=== PATIENT | female | born 1965 | race American Indian/Alaskan Native ===

== ENCOUNTER 2017-09-08 10:42 | Emergency (ER) | payer SELFPAY ==
[2017-09-08 11:15] VITALS: BP 167/91
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
== END 2017-09-08 12:10 | disposition home or self-care (01) ==
LOC: ED 10:42
DX: M54.9 Dorsalgia, unspecified (principal); G89.29 Other chronic pain; E11.9 Type 2 diabetes mellitus without complications; M19.90 Unspecified osteoarthritis, unspecified site; F20.9 Schizophrenia, unspecified; J45.909 Unspecified asthma, uncomplicated; Z98.51 Tubal ligation status; Z88.0 Allergy status to penicillin
CPT/HCPCS: 99282

== ENCOUNTER 2018-09-26 09:04 | Emergency (ER) | payer MEDICARE ==
[2018-09-26] MEDS ORDERED: NACL 0.9% 1000 ML 1,000 ML IV ONE (09:41)
[2018-09-26] MEDS ORDERED: ZOFRAN IV ONE (09:41)
[2018-09-26] MEDS ORDERED: MORPHINE IV ONE (09:59)
[2018-09-26 10:01] LABS: Bacteria,Urine 1+ /HPF (Negative); Bilirubin,Urine NEG (Negative); Blood,Urine SM (Negative); Color,Urine Yellow (Yellow); Mucus,Urine FEW /HPF; Protein,Urine <15 mg/dL mg/dL (Negative); Urobilinogen,Urine < 2.0 mg/dL (<2.0)
[2018-09-26] MEDS ORDERED: MORPHINE ONE (10:02)
[2018-09-26] MEDS ORDERED: ZITHROMAX PO ONE (10:09)
[2018-09-26] MEDS ORDERED: CLEOCIN 900 MG/50 mL 900 MG/50 ML BAG IV ONE (10:09)
--- NOTE | 2018-09-26 10:15 | Emergency Department Report ---
ED Female HPI - General Chief complaint: Urogenital-Female Stated complaint: PAIN ALL OVER Time Seen by Provider: 09/26/18 09:28 Source: patient Mode of arrival: Ambulatory Limitations: No Limitations - History of Present Illness Initial comments: Pt is a 53 yo female who presents to the ED with c/o vaginal irritation that began 3 weeks ago. She has associated burning, itching, vaginal discharge, and dysuria. The patient states she also has back pain and suprapubic pain. She denies any N/V or fever. The patient was evaluated in the ED on [facility] and completed a course of bactrim, fluconazole, and nystatin powder but is still experiencing symptoms. - Related Data Home Medications Medication Instructions Recorded Confirmed Last Taken Gabapentin [Neurontin] 300 mg PO TID 08/05/13 02/06/16 09/26/14 FLUoxetine [PROzac] 20 mg PO QDAY 01/04/14 02/06/16 09/26/14 Levothyroxine [Synthroid] 125 mcg PO QAM 01/04/14 02/06/16 09/26/14 Phenytoin [Dilantin] 100 mg PO HS 01/04/14 02/06/16 09/26/14 Rosuvastatin (Nf) [Crestor] 20 mg PO HS 01/04/14 02/06/16 09/25/14 metFORMIN [Glucophage] 500 mg PO BID 01/04/14 02/06/16 09/26/14 Previous Rx's Medication Instructions Recorded Last Taken Type Butalb/Acetamin/Caff 50-325-40 2 tab PO Q4H PRN #30 tablet 09/29/14 Unknown Rx [Fioricet] Symbicort 160-4.5 1 puff INHALATION DAILY #1 09/29/14 Unknown Rx amLODIPine [Norvasc] 5 mg PO DAILY #30 tablet 09/29/14 Unknown Rx hydroCHLOROthiazide [HCTZ] 25 mg PO DAILY #30 tablet 09/29/14 Unknown Rx Ciprofloxacin HCl [Ciprofloxacin 250 mg PO BID 3 Days #6 tablet 09/26/18 Unknown Rx TAB] Fluconazole [Diflucan] 200 mg PO ONCE 1 Days #1 tablet 09/26/18 Unknown Rx Phenazopyridine [Pyridium] 100 mg PO TID 3 Days #9 tab 09/26/18 Unknown Rx Allergies Allergy/AdvReac Type Severity Reaction Status Date / Time Penicillins AdvReac Unknown Verified 08/05/13 06:26 ED Review of Systems ROS: Stated complaint: PAIN ALL OVER Other details as noted in HPI Comment: All other systems reviewed and negative ED Past Medical Hx - Past Medical History Previous Medical History?: Yes Hx Hypertension: Yes Hx Diabetes: Yes Hx Arthritis: Yes Hx Seizures: Yes Hx Psychiatric Treatment: Yes (schizophrenia, Mood disorder, bipolar.) Hx Asthma: Yes Additional medical history: PVD - Surgical History Past Surgical History?: Yes Hx Cholecystectomy: Yes Additional Surgical History: ,TUBAL LIGATION - Social History Smoking Status: Never Smoker Substance Use Type: None - Medications Home Medications: Home Medications Medication Instructions Recorded Confirmed Last Taken Type Gabapentin [Neurontin] 300 mg PO TID 08/05/13 02/06/16 09/26/14 History FLUoxetine [PROzac] 20 mg PO QDAY 01/04/14 02/06/16 09/26/14 History Levothyroxine [Synthroid] 125 mcg PO QAM 01/04/14 02/06/16 09/26/14 History Phenytoin [Dilantin] 100 mg PO HS 01/04/14 02/06/16 09/26/14 History Rosuvastatin (Nf) [Crestor] 20 mg PO HS 01/04/14 02/06/16 09/25/14 History metFORMIN [Glucophage] 500 mg PO BID 01/04/14 02/06/16 09/26/14 History Butalb/Acetamin/Caff 50-325-40 2 tab PO Q4H PRN #30 tablet 09/29/14 02/06/16 Unknown Rx [Fioricet] Symbicort 160-4.5 1 puff INHALATION DAILY #1 09/29/14 02/06/16 Unknown Rx amLODIPine [Norvasc] 5 mg PO DAILY #30 tablet 09/29/14 02/06/16 Unknown Rx hydroCHLOROthiazide [HCTZ] 25 mg PO DAILY #30 tablet 09/29/14 02/06/16 Unknown Rx Ciprofloxacin HCl [Ciprofloxacin 250 mg PO BID 3 Days #6 tablet 09/26/18 Unknown Rx TAB] Fluconazole [Diflucan] 200 mg PO ONCE 1 Days #1 tablet 09/26/18 Unknown Rx Phenazopyridine [Pyridium] 100 mg PO TID 3 Days #9 tab 09/26/18 Unknown Rx ED Physical Exam - General Limitations: No Limitations General appearance: alert, other (appears in moderate amount of discomfort ) - Head Head exam: Present: atraumatic, normocephalic - Eye Eye exam: Present: normal appearance - ENT ENT exam: Present: mucous membranes moist - Respiratory Respiratory exam: Present: normal lung sounds bilaterally. Absent: respiratory distress, wheezes, rales, rhonchi, stridor, chest wall tenderness, accessory muscle use, decreased breath sounds, prolonged expiratory - Cardiovascular Cardiovascular Exam: Present: regular rate, normal rhythm, normal heart sounds. Absent: systolic murmur, diastolic murmur, rubs, gallop - GI/Abdominal GI/Abdominal exam: Present: soft, tenderness (mild TTP in the bilateral upper quadrants, no lower quadrant tenderness, no suprapubic tenderness), normal bowel sounds. Absent: distended, guarding, rebound, rigid, mass - External exam: Present: erythema, other (foam fabricator: EMILY Cárdenas present during pelvic examination ). Absent: swelling, lesions, lacerations, ecchymosis, bleeding Speculum exam: Present: erythema, vaginal discharge (moderate amount of white/yellow discharge), cervical discharge, vaginal bleeding (small amount of punctate bleeding ) Bi-manual exam: Present: cervical motion tendernes (moderate bilaterally on examination ). Absent: adnexal tenderness, adnexal mass, uterine enlargement, uterine tenderness - Back Exam Back exam: Present: CVA tenderness (R), CVA tenderness (L) - Neurological Exam Neurological exam: Present: alert, oriented X3 - Psychiatric Psychiatric exam: Present: normal affect, normal mood - Skin Skin exam: Present: warm, dry, intact ED Course Vital Signs 09/26/18 09/26/18 09:11 12:34 Temperature 97.4 F L 98.9 F Pulse Rate 100 H 72 Respiratory 16 16 Rate Blood Pressure 173/102 Blood Pressure 136/84 [Left] O2 Sat by Pulse 99 99 Oximetry ED Medical Decision Making - Lab Data Result diagrams: 09/26/18 10:05 09/26/18 10:05 Lab Results 09/26/18 09/26/18 09/26/18 Range/Units 09:51 10:05 10:05 WBC 6.6 (4.5-11.0) K/mm3 RBC 4.24 (3.65-5.03) M/mm3 Hgb 13.2 (10.1-14.3) gm/dl Hct 39.0 (30.3-42.9) % MCV 92 (79-97) fl MCH 31 (28-32) pg MCHC 34 (30-34) % RDW 14.6 (13.2-15.2) % Plt Count 289 (140-440) K/mm3 Lymph % (Auto) 21.9 (13.4-35.0) % Green % (Auto) 6.1 (0.0-7.3) % Eos % (Auto) 1.9 (0.0-4.3) % Baso % (Auto) 0.5 (0.0-1.8) % Lymph # 1.4 (1.2-5.4) K/mm3 Green # 0.4 (0.0-0.8) K/mm3 Eos # 0.1 (0.0-0.4) K/mm3 Baso # 0.0 (0.0-0.1) K/mm3 Seg Neutrophils % 69.6 (40.0-70.0) % Seg Neutrophils # 4.6 (1.8-7.7) K/mm3 Sodium 140 (137-145) mmol/L Potassium 4.6 (3.6-5.0) mmol/L Chloride 101.2 (98-107) mmol/L Carbon Dioxide 25 (22-30) mmol/L Anion Gap 18 mmol/L BUN 11 (7-17) mg/dL Creatinine 0.7 (0.7-1.2) mg/dL Estimated GFR > 60 ml/min BUN/Creatinine Ratio 16 % Glucose 317 H (65-100) mg/dL Calcium 9.4 (8.4-10.2) mg/dL Total Bilirubin 0.30 (0.1-1.2) mg/dL AST 26 (5-40) units/L ALT 30 (7-56) units/L Alkaline Phosphatase 125 (35-129) units/L Total Protein 6.7 (6.3-8.2) g/dL Albumin 3.7 L (3.9-5) g/dL Albumin/Globulin Ratio 1.2 % Lipase 57 (13-60) units/L Urine Color Yellow (Yellow) Urine Turbidity Slightly-cloudy (Clear) Urine pH 5.0 (5.0-7.0) Ur Specific [place] 1.043 H (1.003-1.030) Urine Protein <15 mg/dl (Negative) mg/dL Urine Glucose (UA) >=500 (Negative) mg/dL Urine Ketones 80 (Negative) mg/dL Urine Blood Sm (Negative) Urine Nitrite Neg (Negative) Urine Bilirubin Neg (Negative) Urine Urobilinogen < 2.0 (<2.0) mg/dL Ur Leukocyte Esterase Lg (Negative) Urine WBC (Auto) 27.0 H (0.0-6.0) /HPF Urine RBC (Auto) 30.0 (0.0-6.0) /HPF U Epithel Cells (Auto) 7.0 (0-13.0) /HPF Urine Bacteria (Auto) 1+ (Negative) /HPF Urine Mucus Few /HPF repeat accucheck is 272 - Radiology Data Radiology results: report reviewed interpreted by me: CT ABDOMEN PELVIS WITH CONTRAST: HISTORY: Bilateral flank pain, history of UTI. COMPARISON: none. TECHNIQUE: Helical CT in 1.25mm intervals following IV contrast. Sagittal and coronal reconstructions. FINDINGS: Lung bases: Normal. Liver: Normal. Biliary system: Cholecystectomy. Pancreas: Normal. Spleen: Normal. Kidneys/ureters/bladder: Normal. Adrenal glands: Normal. Aorta: Normal. Intestines: Normal. Appendix: Normal. Pelvic viscera: Normal. Ascites: None. Adenopathy: None. Musculoskeletal: Normal. IMPRESSION: Unremarkable CT scan of the abdomen and pelvis with contrast. Transcribed By: TTR Dictated By: HEATHER CALDERON JR, MD Electronically Authenticated By: HEATHER CALDERON JR, MD Signed Date/Time: 09/26/18 1132 - Medical Decision Making Pt is a 53 yo female who presents to the ED with c/o vaginal irritation that began 3 weeks ago. She has associated burning, itching, vaginal discharge, and dysuria. The patient states she also has back pain and suprapubic pain. She denies any N/V or fever. The patient was evaluated in the ED on [facility] and completed a course of bactrim, fluconazole, and nystatin powder but is still experiencing symptoms. On examination pt has bilateral flank pain. On pelvic examination pt has vaginal and cervical discharge and CMT present on examination, small area of punctuate bleeding. Pt given clindamycin due to ceftriaxone allergy and also given azithromycin. UA shows WBCs and leukocyte esterase. No leukocytosis. Blood glucose is elevated, repeat is <300. CT abd/pelvis with no acute process. wet prep with no yeast, trichomonas, or BV. G/C swab sent. Pt treated for G/C with clindamycin (due to PCN allergy), azithromycin. Pt given prescription for cipro due to failure of bactrim. Pt also given another fluconazole tablet and advised to continue using her already prescribed nystatin powder. Advised pt to follow up with a METAL WORKER in the next 2-3 days for further evaluation and management. Discussed with pt to follow up with her PCP in the next 2-3 days due to her elevation in her blood glucose and elevation in her initial blood pressure reading. Repeat blood pressure significantly improved without intervention. Discussed with pt to return to the ED for any new or worsening symptoms. Advised to continue to drink plenty of water. - Differential Diagnosis UTI, Yeast, BV, Trichomonas, STD Critical care attestation.: If time is entered above; I have spent that time in minutes in the direct care of this critically ill patient, excluding procedure time. ED Disposition Clinical Impression: Vaginal pain, Flank pain, Hyperglycemia, Elevated blood pressure reading UTI (urinary tract infection) Qualifiers: Urinary tract infection type: acute cystitis Hematuria presence: with hematuria Qualified Code(s): N30.01 - Acute cystitis with hematuria HTN (hypertension) Qualifiers: Hypertension type: essential hypertension Qualified Code(s): I10 - Essential (primary) hypertension Disposition: TO HOME OR SELFCARE Is pt being admited?: No Does the pt Need Aspirin: No Condition: Stable Instructions: Urinary Tract Infection in Women (ED), Dysuria (ED), Hypertension (ED) Additional Instructions: Please follow up with your primary care doctor in the next 2-3 days to discuss elevation in blood pressure and elevation in blood sugar. Please follow up with an METAL STAMPING MACHINE OPERATOR in the next 2-3 days for further evaluation and management. Take all medication as prescribed. Continue using your nystatin powder. Return to the emergency room for any new or worsening symptoms. Prescriptions: Ciprofloxacin HCl [Ciprofloxacin TAB] 250 mg PO BID 3 Days #6 tablet Fluconazole [Diflucan] 200 mg PO ONCE 1 Days #1 tablet Phenazopyridine [Pyridium] 100 mg PO TID 3 Days #9 tab Referrals: TREMAYNE DEGROOT MD [Primary Care Provider] - 2-3 Days [facility] [Provider Group] - 2-3 Days Time of Disposition: 11:56 Print Language: UKRAINIAN
[2018-09-26 10:17] LABS: Basophils % (Auto) 0.5 % (0.0-1.8); Eosinophils # (Auto) 0.1 K/mm3 (0.0-0.4); Eosinophils % (Auto) 1.9 % (0.0-4.3); Hemoglobin 13.2 gm/dl (10.1-14.3); Lymphocytes # (Auto) 1.4 K/mm3 (1.2-5.4); Lymphocytes % (Auto) 21.9 % (13.4-35.0); Mean Corpuscular HGB Conc 34 % (30-34); Mean Corpuscular Volume 92 fl (79-97); Monocytes # (Auto) 0.4 K/mm3 (0.0-0.8); Monocytes % (Auto) 6.1 % (0.0-7.3); Platelet Count 289 K/mm3 (140-440); Red Blood Count 4.24 M/mm3 (3.65-5.03); Red Cell Distribution Width 14.6 % (13.2-15.2)
[2018-09-26 10:44] LABS: Alanine Aminotransferase 30 units/L (7-56); Albumin 3.7 g/dL (3.9-5); BUN/Creatinine Ratio 16; Blood Urea Nitrogen 11 mg/dL (7-17); Calcium 9.4 mg/dL (8.4-10.2); Hemolysis Index 3
--- NOTE | 2018-09-26 11:54 | Cat Scan Report ---
CT ABDOMEN PELVIS WITH CONTRAST: HISTORY: Bilateral flank pain, history of UTI. COMPARISON: none. TECHNIQUE: Helical CT in 1.25mm intervals following IV contrast. Sagittal and coronal reconstructions. FINDINGS: Lung bases: Normal. Liver: Normal. Biliary system: Cholecystectomy. Pancreas: Normal. Spleen: Normal. Kidneys/ureters/bladder: Normal. Adrenal glands: Normal. Aorta: Normal. Intestines: Normal. Appendix: Normal. Pelvic viscera: Normal. Ascites: None. Adenopathy: None. Musculoskeletal: Normal. IMPRESSION: Unremarkable CT scan of the abdomen and pelvis with contrast.
[2018-09-26] MEDS ORDERED: HumuLIN R IV ONE (11:58)
[2018-09-26 12:35] VITALS: BP 136/84
== END 2018-09-26 12:35 | disposition home or self-care (01) ==
LOC: ED 09:04
DX: N39.0 Urinary tract infection, site not specified (principal); I10 Essential (primary) hypertension; E11.65 Type 2 diabetes mellitus with hyperglycemia; M19.90 Unspecified osteoarthritis, unspecified site; J45.909 Unspecified asthma, uncomplicated; Z88.0 Allergy status to penicillin; Z90.49 Acquired absence of other specified parts of digestive tract; Z98.51 Tubal ligation status
CPT/HCPCS: 36415; 74177; 80053; 81001; 82962; 83690; 85025; 87086; 87210; 87591; 96365; 96375; 99285; J2270; J2405; J7030; Q9967

== ENCOUNTER 2018-10-25 00:30 | Observation (INO) | payer MEDICARE ==
--- NOTE | 2018-10-25 01:25 | XRay Report ---
PROCEDURE: XR CHEST 1V AP TECHNIQUE: Chest radiograph single view. HISTORY: Chest Pain COMPARISONS: None . FINDINGS: Heart: Normal. Mediastinum/Vessels: Normal. Lungs/Pleural space: Normal. Bony thorax: No acute osseous abnormality. Life support devices: None. IMPRESSION: No acute cardiopulmonary abnormality. This document is electronically signed by Abraham Andersen MD., Oct 25 2018 01:22:58 AM ET
[2018-10-25 01:51] LABS: BUN/Creatinine Ratio 20; Blood Urea Nitrogen 24 mg/dL (7-17); Calcium 9.4 mg/dL (8.4-10.2); Hemolysis Index 26
--- NOTE | 2018-10-25 02:40 | Emergency Department Report ---
ED Chest Pain HPI - General Chief Complaint: Chest Pain Stated Complaint: HIGH BLOOD GLUCOSE/CHEST PAIN Time Seen by Provider: 10/25/18 01:54 Source: patient Mode of arrival: Ambulatory Limitations: No Limitations - History of Present Illness Initial Comments: 53-year-old female presents to ED with complaint of chest pain. Patient states that approximately 11:30 PM, she was laying in bed attempting to fall asleep when she began to experience substernal chest pain. Patient characterizes pain as throbbing. She reports pain radiates bilaterally around both sides to her back. Reports associated shortness of breath. Patient denies any lower leg sw elling or pain. Only reports chronic right knee pain. Patient also reports her glucose is elevated into the 300s. Patient denies tobacco use. MD Complaint: chest pain -: During the night Onset: during rest Pain Location: substernal Pain Radiation: back Severity: moderate Quality: sharp, other (throbbing) Improves With: nothing Worsens With: nothing re: nausea, dyspnea Other Symptoms: cough. denies: fever, leg swelling - Related Data Home Medications Medication Instructions Recorded Confirmed Last Taken Gabapentin [Neurontin] 300 mg PO TID 08/05/13 02/06/16 09/26/14 FLUoxetine [PROzac] 20 mg PO QDAY 01/04/14 02/06/16 09/26/14 Levothyroxine [Synthroid] 125 mcg PO QAM 01/04/14 02/06/16 09/26/14 Phenytoin [Dilantin] 100 mg PO HS 01/04/14 02/06/16 09/26/14 Rosuvastatin (Nf) [Crestor] 20 mg PO HS 01/04/14 02/06/16 09/25/14 metFORMIN [Glucophage] 500 mg PO BID 01/04/14 02/06/16 09/26/14 Previous Rx's Medication Instructions Recorded Last Taken Type Butalb/Acetamin/Caff 50-325-40 2 tab PO Q4H PRN #30 tablet 09/29/14 Unknown Rx [Fioricet 50-325-40] Symbicort 160-4.5 1 puff INHALATION DAILY #1 09/29/14 Unknown Rx amLODIPine [Norvasc] 5 mg PO DAILY #30 tablet 09/29/14 Unknown Rx hydroCHLOROthiazide [HCTZ] 25 mg PO DAILY #30 tablet 09/29/14 Unknown Rx Ciprofloxacin HCl [Ciprofloxacin 250 mg PO BID 3 Days #6 tablet 09/26/18 Unknown Rx TAB] Fluconazole [Diflucan] 200 mg PO ONCE 1 Days #1 tablet 09/26/18 Unknown Rx Phenazopyridine [Pyridium] 100 mg PO TID 3 Days #9 tab 09/26/18 Unknown Rx Allergies Allergy/AdvReac Type Severity Reaction Status Date / Time Penicillins AdvReac Unknown Verified 08/05/13 06:26 Heart Score - HEART Score History: Slightly suspicious EKG: Normal Age: 45-65 Risk factors: 1-2 risk factors Troponin: < normal limit HEART Score: 2 ED Review of Systems ROS: Stated complaint: HIGH BLOOD GLUCOSE/CHEST PAIN Other details as noted in HPI Comment: All other systems reviewed and negative Constitutional: denies: chills, fever Respiratory: cough, shortness of breath Cardiovascular: chest pain Gastrointestinal: nausea Musculoskeletal: other (denies lower leg pain or swelling) ED Past Medical Hx - Past Medical History Previous Medical History?: Yes Hx Hypertension: Yes Hx Diabetes: Yes Hx Arthritis: Yes Hx Seizures: Yes Hx Psychiatric Treatment: Yes (schizophrenia, Mood disorder, bipolar.) Hx Asthma: Yes Additional medical history: PVD - Surgical History Past Surgical History?: Yes Hx Cholecystectomy: Yes Additional Surgical History: ,TUBAL LIGATION - Social History Smoking Status: Never Smoker Substance Use Type: None - Medications Home Medications: Home Medications Medication Instructions Recorded Confirmed Last Taken Type Gabapentin [Neurontin] 300 mg PO TID 08/05/13 02/06/16 09/26/14 History FLUoxetine [PROzac] 20 mg PO QDAY 01/04/14 02/06/16 09/26/14 History Levothyroxine [Synthroid] 125 mcg PO QAM 01/04/14 02/06/16 09/26/14 History Phenytoin [Dilantin] 100 mg PO HS 01/04/14 02/06/16 09/26/14 History Rosuvastatin (Nf) [Crestor] 20 mg PO HS 01/04/14 02/06/16 09/25/14 History metFORMIN [Glucophage] 500 mg PO BID 01/04/14 02/06/16 09/26/14 History Butalb/Acetamin/Caff 50-325-40 2 tab PO Q4H PRN #30 tablet 09/29/14 02/06/16 Unknown Rx [Fioricet 50-325-40] Symbicort 160-4.5 1 puff INHALATION DAILY #1 09/29/14 02/06/16 Unknown Rx amLODIPine [Norvasc] 5 mg PO DAILY #30 tablet 09/29/14 02/06/16 Unknown Rx hydroCHLOROthiazide [HCTZ] 25 mg PO DAILY #30 tablet 09/29/14 02/06/16 Unknown Rx Ciprofloxacin HCl [Ciprofloxacin 250 mg PO BID 3 Days #6 tablet 09/26/18 Unknown Rx TAB] Fluconazole [Diflucan] 200 mg PO ONCE 1 Days #1 tablet 09/26/18 Unknown Rx Phenazopyridine [Pyridium] 100 mg PO TID 3 Days #9 tab 09/26/18 Unknown Rx ED Physical Exam - General Limitations: No Limitations General appearance: alert, in no apparent distress - Head Head exam: Present: atraumatic, normocephalic - Eye Eye exam: Present: normal appearance - ENT ENT exam: Present: mucous membranes moist - Neck Neck exam: Present: normal inspection - Respiratory Respiratory exam: Present: normal lung sounds bilaterally. Absent: respiratory distress - Cardiovascular Cardiovascular Exam: Present: regular rate, normal rhythm - GI/Abdominal GI/Abdominal exam: Present: soft. Absent: distended, tenderness - Extremities Exam Extremities exam: Present: normal inspection. Absent: pedal edema, calf tenderness - Neurological Exam Neurological exam: Present: alert, oriented X3 - Psychiatric Psychiatric exam: Present: normal affect, normal mood - Skin Skin exam: Present: warm, dry, intact, normal color ED Course Vital Signs 10/25/18 10/25/18 10/25/18 00:35 01:45 02:26 Temperature 98.4 F Pulse Rate 82 93 H 90 Respiratory 16 16 Rate Blood Pressure 150/101 Blood Pressure 143/93 [Right] O2 Sat by Pulse 98 97 Oximetry FRANCISCO JAVIER score - Francisco Javier Score Age > 65: (0) No Aspirin use within the Past 7 Days: (0) No 3 or more CAD Risk Factors: (1) Yes 2 or more Angina events in past 24 hrs: (1) Yes Known CAD with more than 50% Stenosis: (0) No Elevated Cardiac Markers: (0) No ST Deviation Greater than 0.5mm: (0) No FRANCISCO JAVIER Score: 2 ED Medical Decision Making - Lab Data Result diagrams: 10/25/18 01:08 10/25/18 01:05 - EKG Data -: EKG Interpreted by Me EKG shows normal: sinus rhythm, axis, intervals, QRS complexes, ST-T waves Rate: normal - EKG Data Interpretation: no acute changes - Radiology Data Radiology results: report reviewed - Medical Decision Making 53 yo F w/ chest pain, onset tonight. Reports pain radiates to the back. EKG shows no ST changes, troponin normal. CTA Chest negative for PE or dissection. Glucose slightly elevated, however, pt not in DKA. Will admit to hospitalist for further workup of pt's chest pain. - Differential Diagnosis ACS, pneumonia, PE Critical care attestation.: If time is entered above; I have spent that time in minutes in the direct care of this critically ill patient, excluding procedure time. ED Disposition Clinical Impression: Chest pain Disposition: OP ADMIT IP TO THIS HOSP Is pt being admited?: Yes Condition: Stable Instructions: Chest Pain (ED) Referrals: NABIL TORRES MD [Referring] - 3-5 Days Time of Disposition: 05:21
[2018-10-25 02:41] LABS: Basophils % (Auto) 0.5 % (0.0-1.8); Eosinophils # (Auto) 0.2 K/mm3 (0.0-0.4); Eosinophils % (Auto) 2.1 % (0.0-4.3); Hematocrit 41.7 % (30.3-42.9); Hemoglobin 13.9 gm/dl (10.1-14.3); Lymphocytes # (Auto) 1.5 K/mm3 (1.2-5.4); Lymphocytes % (Auto) 17.1 % (13.4-35.0); Mean Corpuscular HGB Conc 33 % (30-34); Mean Corpuscular Volume 93 fl (79-97); Monocytes # (Auto) 0.7 K/mm3 (0.0-0.8); Monocytes % (Auto) 8.2 % (0.0-7.3); Platelet Count 297 K/mm3 (140-440); Red Blood Count 4.51 M/mm3 (3.65-5.03); Red Cell Distribution Width 14.1 % (13.2-15.2)
[2018-10-25 02:58] LABS: INR 0.95 (0.87-1.13)
[2018-10-25 02:59] LABS: Partial Thromboplastin Time 28.8 Sec. (24.2-36.6)
--- NOTE | 2018-10-25 05:17 | Cat Scan Report ---
PROCEDURE: CT ANGIO CHEST TECHNIQUE: Computerized tomographic angiography of the chest was performed after the IV injection of iodinated nonionic contrast including image processing. The image data was postprocessed using 2-di mensional multiplanar reformatted (MPR) and 3-dimensional (MIP and/or volume rendered) techniques. Au tomated exposure control, adjustment of mA and/or kV according to patient size, or iterative reconstr uction dose optimization techniques were utilized. CT DOSE LENGTH PRODUCT: mGycm HISTORY: chest pain COMPARISONS: None . FINDINGS: Heart and pericardium: Normal. Thoracic aorta: There is no thoracic aortic aneurysm or dissection.. Pulmonary vasculature: There is no pulmonary embolism.. Lymph nodes: No enlarged thoracic lymph nodes. Lungs: The lungs are expanded. There are mild fibrotic changes at the lung bases. There are no acute infiltrates.. Pleural space: There is no pleural effusion or pneumothorax.. Musculoskeletal structures: No significant abnormality. Upper abdominal structures: No significant abnormality. IMPRESSION: There is no pulmonary embolism.. . This document is electronically signed by Abraham Andersen MD., Oct 25 2018 05:14:58 AM ET
[2018-10-25] MEDS ORDERED: HumuLIN R IV ONE (05:21)
[2018-10-25] MEDS ORDERED: ASPIRIN PO ONE (05:21)
[2018-10-25] MEDS ORDERED: HumuLIN R SUB-Q ONE (05:44)
[2018-10-25] MEDS ORDERED: SODIUM CHLORIDE FLUSH SYRINGE 10 ML IV PRN ×2 (05:55)
[2018-10-25] MEDS ORDERED: TYLENOL PO PRN (05:55)
[2018-10-25] MEDS ORDERED: ZOFRAN IV PRN (05:55)
--- NOTE | 2018-10-25 06:42 | History and Physical Report ---
<EZEKIEL CHURCHILL - Last Filed: 10/25/18 06:28> History of Present Illness Date of examination: 10/25/18 Date of admission: 10/25/2018 Chief complaint: Chest pain History of present illness: Patient is a 53-year-old female with PMHx of DM type II, hypothyroidism, bipolar disorder, obesity who presents to the ER with complaints of chest pain. Patient described the pain as a sharp stabbing pain, located in the epigastric area radiating around her upper back, causing burping and aluminium taste in her mouth. Patient states that she had taken some Alkaselzer without improvement of the pain. She states that the pain has been on and off, unrelief by nitroglycerin or any analgesic. She had several chips to the ER with the same symptoms, patient denies any abdominal pain, denies shortness of breath, denies Palpitation, denies diaphoresis, denies headache or dizziness. In the ER, her EKG showed no STEMI criteria, her blood sugar was greater than 300 she is admitted for further evaluation of her chest pain. Past History Past Medical History: diabetes, other (Thyroid dz, bipolar disorder) Past Surgical History: cholecystectomy Social history: no significant social history Family history: no significant family history Medications and Allergies Allergies Allergy/AdvReac Type Severity Reaction Status Date / Time Penicillins AdvReac Unknown Verified 08/05/13 06:26 Home Medications Medication Instructions Recorded Confirmed Last Taken Type Gabapentin [Neurontin] 300 mg PO TID 08/05/13 10/25/18 09/26/14 History FLUoxetine [PROzac] 20 mg PO QDAY 01/04/14 10/25/18 09/26/14 History Levothyroxine [Synthroid] 125 mcg PO QAM 01/04/14 10/25/18 09/26/14 History Phenytoin [Dilantin] 100 mg PO HS 01/04/14 10/25/18 09/26/14 History Rosuvastatin (Nf) [Crestor] 20 mg PO HS 01/04/14 10/25/18 09/25/14 History Butalb/Acetamin/Caff 50-325-40 2 tab PO Q4H PRN #30 tablet 09/29/14 10/25/18 Unknown Rx [Fioricet 50-325-40] Symbicort 160-4.5 1 puff INHALATION DAILY #1 09/29/14 10/25/18 Unknown Rx amLODIPine [Norvasc] 5 mg PO DAILY #30 tablet 09/29/14 10/25/18 Unknown Rx hydroCHLOROthiazide [HCTZ] 25 mg PO DAILY #30 tablet 09/29/14 10/25/18 Unknown Rx Ciprofloxacin HCl [Ciprofloxacin 250 mg PO BID 3 Days #6 tablet 09/26/18 10/25/18 Unknown Rx TAB] Phenazopyridine [Pyridium] 100 mg PO TID 3 Days #9 tab 09/26/18 10/25/18 Unknown Rx Aspirin [Aspirin BABY CHEW TAB] 81 mg PO DAILY #30 tab.chew 10/25/18 Unknown Rx Pantoprazole [Protonix] 40 mg PO QDAY #30 tablet 10/25/18 Unknown Rx Fluconazole [Diflucan TAB] 200 mg PO DAILY 5 Days #5 tablet 10/27/18 Unknown Rx Insulin NPH, Human [NovoLIN N] 8 unit SUB-Q BIDDIAB 30 Days #10 ml 10/27/18 Unknown Rx levoFLOXacin [Levaquin TAB] 500 mg PO Q24HR 3 Days #3 tablet 10/27/18 Unknown Rx metFORMIN [Glucophage] 1,000 mg PO BID #60 10/27/18 10/25/18 09/26/14 Rx Active Meds: Active Medications Acetaminophen (Tylenol) 650 mg PO Q4H PRN PRN Reason: Pain MILD(1-3)/Fever >100.5/MARTINEZ Aspirin (Ecotrin) 325 mg PO QDAY [facility] Enoxaparin Sodium (Lovenox) 40 mg SUB-Q QDAY [facility] Ondansetron HCl (Zofran) 4 mg IV Q8H PRN PRN Reason: Nausea And Vomiting Sodium Chloride (Sodium Chloride Flush Syringe 10 Ml) 10 ml IV BID [facility] Sodium Chloride (Sodium Chloride Flush Syringe 10 Ml) 10 ml IV PRN PRN PRN Reason: LINE FLUSH Sodium Chloride (Sodium Chloride Flush Syringe 10 Ml) 10 ml IV PRN PRN PRN Reason: LINE FLUSH Review of Systems Cardiovascular: chest pain Gastrointestinal: abdominal pain (Epigastric area) Exam - Constitutional Vitals: Temp Pulse Resp BP Pulse Ox 98.4 F 83 15 140/93 15 L 10/25/18 00:35 10/25/18 06:24 10/25/18 06:24 10/25/18 06:24 10/25/18 06:24 General appearance: Present: mild distress - EENT Eyes: Present: EOM intact ENT: hearing intact - Neck Neck: Present: normal ROM - Respiratory Respiratory effort: normal Respiratory: bilateral: CTA - Cardiovascular Rhythm: regular Heart Sounds: Present: S1 & S2 - Extremities Extremities: no ischemia Peripheral Pulses: within normal limits - Abdominal General gastrointestinal: Present: non-tender Localized gastrointestinal: tender: epigastric periumbilical - Rectal Rectal Exam: deferred - Integumentary Integumentary: Present: warm, dry - Musculoskeletal Musculoskeletal: generalized weakness - Psychiatric Psychiatric: cooperative - Neurologic Neurologic: moves all extremities Results - Labs CBC & Chem 7: 10/25/18 01:08 10/25/18 01:05 Labs: Laboratory Last Values WBC 9.0 K/mm3 (4.5-11.0) 10/25/18 01:08 RBC 4.51 M/mm3 (3.65-5.03) 10/25/18 01:08 Hgb 13.9 gm/dl (10.1-14.3) 10/25/18 01:08 Hct 41.7 % (30.3-42.9) 10/25/18 01:08 MCV 93 fl (79-97) 10/25/18 01:08 MCH 31 pg (28-32) 10/25/18 01:08 MCHC 33 % (30-34) 10/25/18 01:08 RDW 14.1 % (13.2-15.2) 10/25/18 01:08 Plt Count 297 K/mm3 (140-440) 10/25/18 01:08 Lymph % (Auto) 17.1 % (13.4-35.0) 10/25/18 01:08 [place] % (Auto) 8.2 % (0.0-7.3) H 10/25/18 01:08 Eos % (Auto) 2.1 % (0.0-4.3) 10/25/18 01:08 Baso % (Auto) 0.5 % (0.0-1.8) 10/25/18 01:08 Lymph # 1.5 K/mm3 (1.2-5.4) 10/25/18 01:08 [place] # 0.7 K/mm3 (0.0-0.8) 10/25/18 01:08 Eos # 0.2 K/mm3 (0.0-0.4) 10/25/18 01:08 Baso # 0.0 K/mm3 (0.0-0.1) 10/25/18 01:08 Seg Neutrophils % 72.1 % (40.0-70.0) H 10/25/18 01:08 Seg Neutrophils # 6.5 K/mm3 (1.8-7.7) 10/25/18 01:08 PT 13.2 Sec. (12.2-14.9) 10/25/18 02:35 INR 0.95 (0.87-1.13) 10/25/18 02:35 APTT 28.8 Sec. (24.2-36.6) 10/25/18 02:35 264.75 ng/mlDDU (0-234) H 10/25/18 02:35 Sodium 133 mmol/L (137-145) L 10/25/18 01:05 Potassium 4.4 mmol/L (3.6-5.0) 10/25/18 01:05 Chloride 93.1 mmol/L (98-107) L 10/25/18 01:05 Carbon Dioxide 25 mmol/L (22-30) 10/25/18 01:05 19 mmol/L 10/25/18 01:05 BUN 24 mg/dL (7-17) H 10/25/18 01:05 1.2 mg/dL (0.7-1.2) 10/25/18 01:05 Estimated GFR 56 ml/min 10/25/18 01:05 20 % 10/25/18 01:05 Glucose 391 mg/dL (65-100) H 10/25/18 01:05 POC Glucose 386 (70-105) H 10/25/18 00:53 Calcium 9.4 mg/dL (8.4-10.2) 10/25/18 01:05 < 0.010 ng/mL (0.00-0.029) 10/25/18 03:40 Assessment and Plan Assessment and plan: 1. Chest pain R/o cardiac vrs GI 2. Uncontrolled DM type II 3. Hypothyroidism 4. HTN 5. Bipolar disorder 6. Obesity Plan Admit to [facility] for chest pain Continue CE q6hr x 2 more Monitor vital signs GI Cocktail x 1 dose Accu check ACHS with insulin per sliding scale Continue home meds Keep NPO for Stress test in am Plan of care d/w pt, voiced understading Pt's condition and plan of care d/w Dr Arredondo Advance Directives: Yes VTE prophylaxis?: Chemical Plan of care discussed with patient/family: Yes <JONATAN ARREDONDO - Last Filed: 10/28/18 00:51> History of Present Illness Date of admission: 10/25/18 05:34 Exam - Constitutional Vitals: Temp Pulse Resp BP Pulse Ox 97.4 F L 86 16 107/66 96 10/27/18 14:01 10/27/18 14:01 10/27/18 14:01 10/27/18 14:01 10/27/18 14:01 Results - Labs CBC & Chem 7: 10/25/18 06:33 10/25/18 06:33 Labs: Laboratory Last Values WBC 6.3 K/mm3 (4.5-11.0) 10/25/18 06:33 RBC 4.21 M/mm3 (3.65-5.03) 10/25/18 06:33 Hgb 13.3 gm/dl (10.1-14.3) 10/25/18 06:33 Hct 38.8 % (30.3-42.9) 10/25/18 06:33 MCV 92 fl (79-97) 10/25/18 06:33 MCH 32 pg (28-32) 10/25/18 06:33 MCHC 34 % (30-34) 10/25/18 06:33 RDW 13.9 % (13.2-15.2) 10/25/18 06:33 Plt Count 248 K/mm3 (140-440) 10/25/18 06:33 Lymph % (Auto) 16.3 % (13.4-35.0) 10/25/18 06:33 [place] % (Auto) 8.5 % (0.0-7.3) H 10/25/18 06:33 Eos % (Auto) 2.6 % (0.0-4.3) 10/25/18 06:33 Baso % (Auto) 0.7 % (0.0-1.8) 10/25/18 06:33 Lymph # 1.0 K/mm3 (1.2-5.4) L 10/25/18 06:33 [place] # 0.5 K/mm3 (0.0-0.8) 10/25/18 06:33 Eos # 0.2 K/mm3 (0.0-0.4) 10/25/18 06:33 Baso # 0.0 K/mm3 (0.0-0.1) 10/25/18 06:33 Seg Neutrophils % 71.9 % (40.0-70.0) H 10/25/18 06:33 Seg Neutrophils # 4.5 K/mm3 (1.8-7.7) 10/25/18 06:33 PT 13.2 Sec. (12.2-14.9) 10/25/18 02:35 INR 0.95 (0.87-1.13) 10/25/18 02:35 APTT 28.8 Sec. (24.2-36.6) 10/25/18 02:35 264.75 ng/mlDDU (0-234) H 10/25/18 02:35 Sodium 132 mmol/L (137-145) L 10/25/18 06:33 Potassium 4.4 mmol/L (3.6-5.0) 10/25/18 06:33 Chloride 94.7 mmol/L (98-107) L 10/25/18 06:33 Carbon Dioxide 24 mmol/L (22-30) 10/25/18 06:33 18 mmol/L 10/25/18 06:33 BUN 21 mg/dL (7-17) H 10/25/18 06:33 1.1 mg/dL (0.7-1.2) 10/25/18 06:33 Estimated GFR > 60 ml/min 10/25/18 06:33 19 % 10/25/18 06:33 Glucose 326 mg/dL (65-100) H 10/25/18 06:33 POC Glucose 208 (70-105) H 10/27/18 12:22 12.2 % (4-6) H 10/26/18 13:45 Calcium 8.9 mg/dL (8.4-10.2) 10/25/18 06:33 < 0.010 ng/mL (0.00-0.029) 10/25/18 06:33 Straw (Yellow) 10/25/18 05:40 Clear (Clear) 10/25/18 05:40 6.0 (5.0-7.0) 10/25/18 05:40 Ur Specific [place] 1.030 (1.003-1.030) 10/25/18 05:40 <15 mg/dl mg/dL (Negative) 10/25/18 05:40 >=500 mg/dL (Negative) 10/25/18 05:40 20 mg/dL (Negative) 10/25/18 05:40 Neg (Negative) 10/25/18 05:40 Neg (Negative) 10/25/18 05:40 Neg (Negative) 10/25/18 05:40 < 2.0 mg/dL (<2.0) 10/25/18 05:40 Ur Leukocyte Esterase Sm (Negative) 10/25/18 05:40 14.0 /HPF (0.0-6.0) H 10/25/18 05:40 3.0 /HPF (0.0-6.0) 10/25/18 05:40 U Epithel Cells (Auto) 6.0 /HPF (0-13.0) 10/25/18 05:40 Few /HPF 10/25/18 05:40 Assessment and Plan Assessment and plan: 53-year-old woman with a history of hypertension, bipolar, hypothyroidism, obesity comes emergency room with chest pain. Agree with plan as stated above
[2018-10-25 06:45] LABS: Bilirubin,Urine NEG (Negative); Blood,Urine NEG (Negative); Color,Urine Straw (Yellow); Mucus,Urine FEW /HPF; Protein,Urine <15 mg/dL mg/dL (Negative); Urobilinogen,Urine < 2.0 mg/dL (<2.0)
[2018-10-25 06:55] LABS: Basophils % (Auto) 0.7 % (0.0-1.8); Eosinophils # (Auto) 0.2 K/mm3 (0.0-0.4); Eosinophils % (Auto) 2.6 % (0.0-4.3); Hematocrit 38.8 % (30.3-42.9); Hemoglobin 13.3 gm/dl (10.1-14.3); Lymphocytes % (Auto) 16.3 % (13.4-35.0); Mean Corpuscular HGB Conc 34 % (30-34); Mean Corpuscular Volume 92 fl (79-97); Monocytes # (Auto) 0.5 K/mm3 (0.0-0.8); Monocytes % (Auto) 8.5 % (0.0-7.3); Platelet Count 248 K/mm3 (140-440); Red Blood Count 4.21 M/mm3 (3.65-5.03); Red Cell Distribution Width 13.9 % (13.2-15.2)
[2018-10-25] MEDS ORDERED: D50W (25GM) Syringe IV PRN (06:59)
[2018-10-25 07:14] LABS: BUN/Creatinine Ratio 19; Blood Urea Nitrogen 21 mg/dL (7-17); Calcium 8.9 mg/dL (8.4-10.2); Hemolysis Index 14
[2018-10-25] MEDS: NEURONTIN PO SCH ×3 (08:00→19:24)
[2018-10-25] MEDS: HumaLOG SUB-Q SCH ×4 (08:00→22:15)
[2018-10-25] MEDS: PYRIDIUM PO SCH ×3 (08:00→22:16)
[2018-10-25] MEDS ORDERED: PERCOCET 5/325 PO PRN (09:38)
[2018-10-25] MEDS ORDERED: MORPHINE IV PRN (09:41)
[2018-10-25] MEDS ORDERED: SYMBICORT INHALATION SCH (10:00)
[2018-10-25] MEDS: SODIUM CHLORIDE FLUSH SYRINGE 10 ML IV SCH ×2 (10:00→22:18)
[2018-10-25] MEDS: SYNTHROID PO SCH (10:00)
[2018-10-25] MEDS ORDERED: GLUCOPHAGE PO SCH (10:00)
[2018-10-25] MEDS: LOVENOX SUB-Q SCH (10:00)
[2018-10-25] MEDS ORDERED: CIPROFLOXACIN HCL 250 MG PO SCH (10:00)
[2018-10-25] MEDS ORDERED: DIFLUCAN PO SCH (11:00)
[2018-10-25] MEDS: PULMICORT IH SCH ×2 (14:18→21:00)
[2018-10-25] MEDS: BROVANA NEBU IH SCH ×2 (14:18→21:00)
--- NOTE | 2018-10-25 14:42 | Event Note ---
Date: 10/25/18 Patient seen and examined Patient is a 53-year-old female with PMHx of DM type II, hypothyroidism, bipolar disorder, obesity who presents to the ER with complaints of chest pain. Plan for stress test tomorrow UA suggestive of mild UTI will start of Levaquin by mouth for total 3 days Patient also complaining of whitish vaginal discharge, on physical exam clinically suspicion for candidiasis, we'll place on miconazole cream and monitor
[2018-10-25] MEDS: LEVAQUIN PO SCH (16:09)
[2018-10-25] MEDS: PROzac PO SCH (16:09)
[2018-10-25] MEDS: HCTZ PO SCH (16:14)
[2018-10-25] MEDS: NORVASC PO SCH (16:15)
[2018-10-25] MEDS: MONISTAT-DERM TP SCH ×2 (16:37→22:44)
[2018-10-25] MEDS: FIORICET PO PRN (19:24)
[2018-10-25] MEDS ORDERED: ROSUVASTATIN 20 MG PO SCH (22:00)
[2018-10-25] MEDS: MONISTAT VG SCH (22:16)
[2018-10-25] MEDS: DILANTIN PO SCH (22:16)
[2018-10-26] MEDS: FIORICET PO PRN (04:01)
[2018-10-26] MEDS: SYNTHROID PO SCH (05:17)
[2018-10-26] MEDS ORDERED: LEXISCAN IV ONE ×2 (08:05→09:00)
[2018-10-26] MEDS: HumaLOG SUB-Q SCH ×4 (08:16→21:44)
[2018-10-26] MEDS: BROVANA NEBU IH SCH ×2 (09:56→19:53)
[2018-10-26] MEDS: PULMICORT IH SCH ×2 (09:56→19:53)
[2018-10-26] MEDS: PYRIDIUM PO SCH ×3 (11:22→21:46)
[2018-10-26] MEDS: NORVASC PO SCH (11:23)
[2018-10-26] MEDS: ECOTRIN PO SCH (11:23)
[2018-10-26] MEDS: NEURONTIN PO SCH ×3 (11:23→21:43)
[2018-10-26] MEDS: PROzac PO SCH (11:23)
[2018-10-26] MEDS: LOVENOX SUB-Q SCH (11:23)
[2018-10-26] MEDS: LEVAQUIN PO SCH (11:23)
[2018-10-26] MEDS: HCTZ PO SCH (11:23)
[2018-10-26] MEDS: MONISTAT-DERM TP SCH ×2 (11:24→21:56)
[2018-10-26] MEDS: SODIUM CHLORIDE FLUSH SYRINGE 10 ML IV SCH ×2 (11:24→21:56)
--- NOTE | 2018-10-26 13:08 | Progress Note ---
Assessment and Plan 1. Chest pain R/o cardiac vs GI 2. Uncontrolled DM type II 3. Hypothyroidism 4. HTN 5. Bipolar disorder 6. Obesity 7. UTI, POA 8. vaginal candidiasis Plan Admit to [facility] for chest pain Continue CE q6hr x 2 normal Monitor vital signs Accu check ACHS with insulin per sliding scale and NPH, check a1c Continue home meds, placed on levaquin for UTI, monistat for vaginal candidiasis Keep NPO for Stress test for stress test on Sunday Plan of care d/w pt, voiced understading Subjective Date of service: 10/26/18 Interval history: Patient seen and examined. Medical records and medication list reviewed. No acute event overnight noted by the RN. Patient denies any difficulty breathing. Patient is tolerating diet. Complains of intermittent chest pain cannot do stress test today as she took fioricet Discussed plan of care at bedside with patient. Objective - Constitutional Vitals: Vital Signs - 12hr 10/26/18 10/26/18 10/26/18 03:57 08:00 08:04 Temperature 97.8 F Pulse Rate 73 90 Pulse Rate [ Bilateral Throughout] Respiratory 17 20 18 Rate Respiratory Rate [Bilateral Throughout] Blood Pressure 116/57 133/101 O2 Sat by Pulse 94 95 Oximetry 10/26/18 10/26/18 10/26/18 08:06 09:45 09:59 Temperature 98.0 F Pulse Rate Pulse Rate [ 90 90 Bilateral Throughout] Respiratory Rate Respiratory 18 18 Rate [Bilateral Throughout] Blood Pressure O2 Sat by Pulse Oximetry General appearance: Present: no acute distress, obese - EENT Eyes: PERRL, EOM intact ENT: hearing intact, clear oral mucosa Ears: bilateral: normal - Neck Neck: supple, normal ROM - Respiratory Respiratory effort: normal Respiratory: bilateral: CTA - Cardiovascular Rhythm: regular Heart Sounds: Present: S1 & S2. Absent: gallop, rub Extremities: pulses intact, No edema, normal color, Full ROM - Gastrointestinal General gastrointestinal: Present: soft, non-tender, non-distended, normal bowel sounds - Integumentary Integumentary: clear, warm, dry - Musculoskeletal Musculoskeletal: 1, strength equal bilaterally - Neurologic Neurologic: moves all extremities - Psychiatric Psychiatric: memory intact, appropriate mood/affect, intact judgment & insight - Labs CBC & Chem 7: 10/25/18 06:33 10/25/18 06:33 Labs: Abnormal lab results 10/25/18 10/25/18 10/25/18 Range/Units 13:00 16:22 20:26 POC Glucose 162 H 192 H 352 H (70-105) 10/26/18 10/26/18 Range/Units 07:26 11:46 POC Glucose 281 H 416 H (70-105)
[2018-10-26] MEDS ORDERED: MYLICON PO PRN (21:31)
[2018-10-26] MEDS: DILANTIN PO SCH (21:42)
[2018-10-26] MEDS: MONISTAT VG SCH (21:56)
[2018-10-27] MEDS: MONISTAT VG SCH (03:55)
[2018-10-27] MEDS: SYNTHROID PO SCH (05:24)
[2018-10-27] MEDS: NEURONTIN PO SCH ×2 (08:45→14:03)
[2018-10-27] MEDS: HumaLOG SUB-Q SCH ×2 (08:46→12:47)
[2018-10-27] MEDS: LOVENOX SUB-Q SCH (09:25)
[2018-10-27] MEDS: NORVASC PO SCH (09:25)
[2018-10-27] MEDS: ECOTRIN PO SCH (09:25)
[2018-10-27] MEDS: PROzac PO SCH (09:25)
[2018-10-27] MEDS: HCTZ PO SCH (09:25)
[2018-10-27] MEDS: LEVAQUIN PO SCH (09:25)
[2018-10-27] MEDS: PYRIDIUM PO SCH ×2 (09:30→14:03)
[2018-10-27] MEDS: BROVANA NEBU IH SCH (10:54)
[2018-10-27] MEDS: PULMICORT IH SCH (10:59)
[2018-10-27] MEDS: MONISTAT-DERM TP SCH (12:31)
[2018-10-27] MEDS: SODIUM CHLORIDE FLUSH SYRINGE 10 ML IV SCH (12:46)
--- NOTE | 2018-10-27 13:22 | Progress Note ---
Assessment and Plan 1. Chest pain R/o cardiac vs GI 2. Uncontrolled DM type II 3. Hypothyroidism 4. HTN 5. Bipolar disorder 6. Obesity 7. UTI, POA 8. vaginal candidiasis Plan Admit to [facility] for chest pain Continue CE q6hr x 2 normal Monitor vital signs Accu check ACHS with insulin per sliding scale and NPH, check a1c Continue home meds, placed on levaquin for UTI, monistat for vaginal candidiasis Keep NPO for Stress test for stress test on Sunday Plan of care d/w pt, voiced understading Subjective Date of service: 10/27/18 Objective - Constitutional Vitals: Vital Signs - 12hr 10/27/18 10/27/18 10/27/18 03:54 08:00 09:20 Temperature 98.2 F 97.4 F L Pulse Rate 56 L 86 Pulse Rate [ Bilateral Throughout] Respiratory 16 20 20 Rate Respiratory Rate [Bilateral Throughout] Blood Pressure 126/71 128/65 O2 Sat by Pulse 98 98 Oximetry 10/27/18 10/27/18 10/27/18 10:00 10:53 11:03 Temperature Pulse Rate 93 H Pulse Rate [ 92 H 90 Bilateral Throughout] Respiratory Rate Respiratory 20 20 Rate [Bilateral Throughout] Blood Pressure O2 Sat by Pulse Oximetry - Labs CBC & Chem 7: 10/25/18 06:33 10/25/18 06:33 Labs: Abnormal lab results 10/26/18 10/26/18 10/26/18 Range/Units 13:45 16:42 20:34 POC Glucose 316 H 297 H (70-105) Hemoglobin A1c 12.2 H (4-6) % 10/27/18 10/27/18 Range/Units 07:35 12:22 POC Glucose 210 H 208 H (70-105) Hemoglobin A1c (4-6) %
[2018-10-27 14:08] VITALS: BP 107/66
--- NOTE | 2018-10-27 14:19 | Discharge Summary ---
Providers - Providers Date of Admission: 10/25/18 05:34 Date of discharge: 10/27/18 Attending physician: DIPIKA SIMMONS 10/25/18 Consult to Cardiac Rehabilitation [CONS] Routine Reason For Exam: Phase I 10/26/18 10:37 Consult to Physician [CONS] Routine Comment: Consulting Provider: ROLANDO WILL Physician Instructions: Reason For Exam: chest pain Primary care physician: TREMAYNE DEGROOT Hospitalization Reason for admission: chest pain Condition: Stable Pertinent studies: CXR Chest CTA 2d echo Hospital course: The patient is a 53-year-old woman with a history of diabetes, who presented to the emergency room specifically with complaints of elevated blood sugar. Her BG at home found to be 432, and decided to come to the emergency room. During review of systems, she also described in nonexertional, stabbing epigastric pain which lasted only a few seconds and has not recurred. ECGs showed normal sinus rhythm, mild J-point elevation consistent with early repolarization which is unchanged from multiple previous ECGs in her medical records. Insulin initiated for uncontrolled DM. Today, her blood sugar is now 203, and she wants to go home. We have recommended a predischarge stress test, but patient is adamant that she wants to leave and have further testing as outpatient. She was then discharged home in stable condition with outpt followup. Discharge diagnosis; 1. Chest pain R/o cardiac vs GI - stress test outpt 2. Uncontrolled DM type II, started on insulin 3. Hypothyroidism 4. HTN 5. Bipolar disorder 6. Obesity 7. UTI, POA 8. Vaginal candidiasis Disposition: - TO HOME OR SELFCARE Time spent for discharge: 34 minutes Core Measure Documentation - Palliative Care Palliative Care/ Comfort Measures: Not Applicable - Core Measures Any of the following diagnoses?: none Exam - Physical Exam Narrative exam: General appearance: Present: no acute distress, obese - EENT Eyes: PERRL, EOM intact ENT: hearing intact, clear oral mucosa Ears: bilateral: normal - Neck Neck: supple, normal ROM - Respiratory Respiratory effort: normal Respiratory: bilateral: CTA - Cardiovascular Rhythm: regular Heart Sounds: Present: S1 & S2. Absent: gallop, rub Extremities: pulses intact, No edema, normal color, Full ROM - Gastrointestinal General gastrointestinal: Present: soft, non-tender, non-distended, normal bowel sounds - Integumentary Integumentary: clear, warm, dry - Musculoskeletal Musculoskeletal: 1, strength equal bilaterally - Neurologic Neurologic: moves all extremities - Psychiatric Psychiatric: memory intact, appropriate mood/affect, intact judgment & insight - Constitutional Vitals: Temp Pulse Resp BP Pulse Ox 97.4 F L 86 16 107/66 96 10/27/18 14:01 10/27/18 14:01 10/27/18 14:01 10/27/18 14:01 10/27/18 14:01 Plan Activity: advance as tolerated Weight Bearing Status: Non-Weight Bearing Diet: low fat, diabetic Special Instructions: record daily BP diary, record blood sugar diary Follow up with: DANY LORD MD [Staff Physician] - 7 Days VALLEY NABIL WEEKS MD [Referring] - 3-5 Days Prescriptions: Aspirin [Aspirin BABY CHEW TAB] 81 mg PO DAILY #30 tab.chew Fluconazole [Diflucan TAB] 200 mg PO DAILY 5 Days #5 tablet levoFLOXacin [Levaquin TAB] 500 mg PO Q24HR 3 Days #3 tablet Insulin NPH, Human [NovoLIN N] 8 unit SUB-Q BIDDIAB 30 Days #10 ml Pantoprazole [Protonix] 40 mg PO QDAY #30 tablet Other Discharge Orders: Glucometer (Amb) Location: None Selected Glucometer supplies[Amb] Location: None Selected
--- NOTE | 2018-10-27 14:51 | Consultation ---
History of Present Illness Consult date: 10/27/18 Consult reason: chest pain History of present illness: The patient is a 53-year-old woman with a history of diabetes, who presented to the emergency room specifically with complaints of elevated blood sugar. She took her blood pressure at home, found out it was 432, and decided to come to the emergency room. During review of systems, she also described in nonexertional, stabbing epigastric pain which lasted only a few seconds and has not recurred. There were no associated symptoms, no shortness of breath, no palpitations and no lower extremity edema. She denies any prior cardiac history or prior significant cardiac workup. Serial ECGs and normal sinus rhythm, mild J-point elevation consistent with early repolarization. The EKG is unchanged from multiple previous ECGs in her medical records. Today, she looks and feels well, blood sugar is now 203, she wants to go home. We have recommended a predischarge stress test, but patient is adamant that she wants to leave and have further testing as outpatient. Past History Past Medical History: diabetes, other (Thyroid dz, bipolar disorder) Past Surgical History: cholecystectomy Social history: no significant social history Family history: no significant family history Medications and Allergies Allergies Allergy/AdvReac Type Severity Reaction Status Date / Time Penicillins AdvReac Unknown Verified 08/05/13 06:26 Home Medications Medication Instructions Recorded Confirmed Last Taken Type Gabapentin [Neurontin] 300 mg PO TID 08/05/13 10/25/18 09/26/14 History FLUoxetine [PROzac] 20 mg PO QDAY 01/04/14 10/25/18 09/26/14 History Levothyroxine [Synthroid] 125 mcg PO QAM 01/04/14 10/25/18 09/26/14 History Phenytoin [Dilantin] 100 mg PO HS 01/04/14 10/25/18 09/26/14 History Rosuvastatin (Nf) [Crestor] 20 mg PO HS 01/04/14 10/25/18 09/25/14 History Butalb/Acetamin/Caff 50-325-40 2 tab PO Q4H PRN #30 tablet 09/29/14 10/25/18 Unknown Rx [Fioricet 50-325-40] Symbicort 160-4.5 1 puff INHALATION DAILY #1 09/29/14 10/25/18 Unknown Rx amLODIPine [Norvasc] 5 mg PO DAILY #30 tablet 09/29/14 10/25/18 Unknown Rx hydroCHLOROthiazide [HCTZ] 25 mg PO DAILY #30 tablet 09/29/14 10/25/18 Unknown Rx Ciprofloxacin HCl [Ciprofloxacin 250 mg PO BID 3 Days #6 tablet 09/26/18 10/25/18 Unknown Rx TAB] Phenazopyridine [Pyridium] 100 mg PO TID 3 Days #9 tab 09/26/18 10/25/18 Unknown Rx Aspirin [Aspirin BABY CHEW TAB] 81 mg PO DAILY #30 tab.chew 10/25/18 Unknown Rx Pantoprazole [Protonix] 40 mg PO QDAY #30 tablet 10/25/18 Unknown Rx Fluconazole [Diflucan TAB] 200 mg PO DAILY 5 Days #5 tablet 10/27/18 Unknown Rx Insulin NPH, Human [NovoLIN N] 8 unit SUB-Q BIDDIAB 30 Days #10 ml 10/27/18 Unknown Rx levoFLOXacin [Levaquin TAB] 500 mg PO Q24HR 3 Days #3 tablet 10/27/18 Unknown Rx metFORMIN [Glucophage] 1,000 mg PO BID #60 10/27/18 10/25/18 09/26/14 Rx Active Meds: Active Medications Acetaminophen (Tylenol) 650 mg PO Q4H PRN PRN Reason: Pain MILD(1-3)/Fever >100.5/MARTINEZ Last Admin: 10/27/18 14:03 Dose: 650 mg Documented by: Amlodipine Besylate (Norvasc) 5 mg PO DAILY COUNTS INCLUDE 234 BEDS AT THE [facility] Last Admin: 10/27/18 09:25 Dose: 5 mg Documented by: Arformoterol Tartrate (Brovana Nebu) 15 mcg IH Q12HRT COUNTS INCLUDE 234 BEDS AT THE [facility] Last Admin: 10/27/18 10:54 Dose: 15 mcg Documented by: Aspirin (Ecotrin) 325 mg PO QDAY COUNTS INCLUDE 234 BEDS AT THE [facility] Last Admin: 10/27/18 09:25 Dose: 325 mg Documented by: Atorvastatin Calcium (Lipitor) 40 mg PO QHS COUNTS INCLUDE 234 BEDS AT THE [facility] Last Admin: 10/26/18 21:43 Dose: 40 mg Documented by: Budesonide (Pulmicort) 0.5 mg IH Q12HRT COUNTS INCLUDE 234 BEDS AT THE [facility] Last Admin: 10/27/18 10:59 Dose: 0.5 mg Documented by: Dextrose (D50w (25gm) Syringe) 50 ml IV PRN PRN PRN Reason: Hypoglycemia Enoxaparin Sodium (Lovenox) 40 mg SUB-Q QDAY COUNTS INCLUDE 234 BEDS AT THE [facility] Last Admin: 10/27/18 09:25 Dose: 40 mg Documented by: Fluconazole (Diflucan) 200 mg PO ONCE COUNTS INCLUDE 234 BEDS AT THE [facility] Fluoxetine HCl (Prozac) 20 mg PO QDAY COUNTS INCLUDE 234 BEDS AT THE [facility] Last Admin: 10/27/18 09:25 Dose: 20 mg Documented by: Gabapentin (Neurontin) 300 mg PO TID COUNTS INCLUDE 234 BEDS AT THE [facility] Last Admin: 10/27/18 14:03 Dose: 300 mg Documented by: Hydrochlorothiazide (Hctz) 25 mg PO DAILY COUNTS INCLUDE 234 BEDS AT THE [facility] Last Admin: 10/27/18 09:25 Dose: 25 mg Documented by: Insulin Human Lispro (Humalog) 0 unit SUB-Q ACHS COUNTS INCLUDE 234 BEDS AT THE [facility]; Protocol Last Admin: 10/27/18 12:47 Dose: 4 unit Documented by: Insulin Human NPH (Humulin N) 12 unit SUB-Q BIDDIAB COUNTS INCLUDE 234 BEDS AT THE [facility] Levofloxacin (Levaquin) 500 mg PO Q24HR COUNTS INCLUDE 234 BEDS AT THE [facility] Last Admin: 10/27/18 09:25 Dose: 500 mg Documented by: Levothyroxine Sodium (Synthroid) 125 mcg PO DAILY@0600 COUNTS INCLUDE 234 BEDS AT THE [facility] Last Admin: 10/27/18 05:24 Dose: 125 mcg Documented by: Miconazole (Monistat) 100 mg VG QHS COUNTS INCLUDE 234 BEDS AT THE [facility] Stop: 10/31/18 22:01 Last Admin: 10/27/18 03:55 Dose: 100 mg Documented by: Miconazole Nitrate (Monistat-Derm) 1 applic TP Q12HR COUNTS INCLUDE 234 BEDS AT THE [facility] Last Admin: 10/27/18 12:31 Dose: Not Given Documented by: Morphine Sulfate (Morphine) 2 mg IV Q4H PRN PRN Reason: Pain, Moderate (4-6) Ondansetron HCl (Zofran) 4 mg IV Q8H PRN PRN Reason: Nausea And Vomiting Last Admin: 10/25/18 20:59 Dose: 4 mg Documented by: Phenazopyridine HCl (Pyridium) 100 mg PO TID COUNTS INCLUDE 234 BEDS AT THE [facility] Last Admin: 10/27/18 14:03 Dose: 100 mg Documented by: Phenytoin (Dilantin) 100 mg PO [facility] Last Admin: 10/26/18 21:42 Dose: 100 mg Documented by: Simethicone (Mylicon) 80 mg PO Q6H PRN PRN Reason: Gas pain Last Admin: 10/26/18 21:43 Dose: 80 mg Documented by: Sodium Chloride (Sodium Chloride Flush Syringe 10 Ml) 10 ml IV BID [facility] Last Admin: 10/27/18 12:46 Dose: 10 ml Documented by: Sodium Chloride (Sodium Chloride Flush Syringe 10 Ml) 10 ml IV PRN PRN PRN Reason: LINE FLUSH Review of Systems Cardiovascular: chest pain, no orthopnea, no palpitations, no rapid/irregular heart beat, no edema, no syncope, no lightheadedness, no shortness of breath Physical Examination Vital Signs Temp Pulse Resp BP Pulse Ox 98.4 F 82 16 150/101 98 10/25/18 00:35 10/25/18 00:35 10/25/18 00:35 10/25/18 00:35 10/25/18 00:35 General appearance: no acute distress HEENT: Positive: PERRL Neck: Positive: neck supple Cardiac: Positive: Reg Rate and Rhythm Lungs: Positive: clear to auscultation Neuro: Positive: Grossly Intact Abdomen: Positive: Soft Female genitourinary: deferred Skin: Positive: Clear Extremities: Absent: edema Results 10/25/18 06:33 10/25/18 06:33 EKG interpretations - Telemetry EKG Rhythm: Sinus Rhythm Assessment and Plan - Patient Problems (1) Chest pain Current Visit: Yes Status: Acute Plan to address problem: Patient presented with a primary complaint of elevated blood glucose, now better controlled. Chest pain is atypical, serial ECGs and cardiac enzymes are negative. Patient wants to go home and have further testing as outpatient. Okay to discharge, follow-up in the office in 3-5 days, return to the emergency room immediately if any further chest pain.
== END 2018-10-27 16:15 | disposition home or self-care (01) ==
LOC: ED 00:30 → SUATTDRO 00:30 → 4A 05:34
PROVIDERS: ADMIT Internal Medicine; ATTEND Internal Medicine
DX: R07.89 Other chest pain (principal); E11.65 Type 2 diabetes mellitus with hyperglycemia; E03.9 Hypothyroidism, unspecified; I10 Essential (primary) hypertension; F31.9 Bipolar disorder, unspecified; E66.9 Obesity, unspecified; B37.49 Other urogenital candidiasis; M19.90 Unspecified osteoarthritis, unspecified site; F20.9 Schizophrenia, unspecified; F39 Unspecified mood [affective] disorder; J45.909 Unspecified asthma, uncomplicated; I73.9 Peripheral vascular disease, unspecified; Z90.49 Acquired absence of other specified parts of digestive tract; Z79.899 Other long term (current) drug therapy; Z79.82 Long term (current) use of aspirin; Z98.51 Tubal ligation status; Z98.890 Other specified postprocedural states; Z93.4 Other artificial openings of gastrointestinal tract status
CPT/HCPCS: 36415; 71045; 71275; 80048; 81001; 82962; 83036; 84484; 85025; 85379; 85610; 85730; 93005; 93010; 93306; 94640; 96372; 96374; 99284; A9270; G0378; J1650; J2405; J2785; Q9967; J1815; J2270

== ENCOUNTER 2019-03-08 12:20 | Emergency (ER) | payer MEDICARE ==
[2019-03-08] MEDS ORDERED: ASPIRIN 325 MG TAB PO ONE (12:57)
--- NOTE | 2019-03-08 12:59 | Event Note ---
ED Screening Note Date of service: 03/08/19 Time: 12:55 ED Screening Note: This is a 54 y.o. F. with chest pain for 2 weeks. Patient states she went to PCP Dr. White last week and started on gabapentin for peripheral neuropathy. PMH DM2, HTN, asthma, peripheral neuropathy, HLD, depression, and bipolar - n/v, palpitations, SOB, weakness, or dizziness Reports pain is worse with deep breaths. This initial assessment/diagnostic orders/clinical plan/treatment(s) is/are subject to change based on patients health status, clinical progression and re- assessment by fellow clinical providers in the ED. Further treatment and workup at subsequent clinical providers discretion. Patient/guardian urged not to elope from the ED as their condition may be serious if not clinically assessed and managed. Initial orders include: Labs, EKG, & CXR
[2019-03-08 13:19] LABS: Basophils # (Auto) 0.1 K/mm3 (0.0-0.1); Basophils % (Auto) 0.8 % (0.0-1.8); Eosinophils # (Auto) 0.1 K/mm3 (0.0-0.4); Eosinophils % (Auto) 2.3 % (0.0-4.3); Hematocrit 41.2 % (30.3-42.9); Hemoglobin 13.9 gm/dl (10.1-14.3); Lymphocytes # (Auto) 1.2 K/mm3 (1.2-5.4); Lymphocytes % (Auto) 19.4 % (13.4-35.0); Mean Corpuscular HGB Conc 34 % (30-34); Mean Corpuscular Volume 93 fl (79-97); Monocytes # (Auto) 0.5 K/mm3 (0.0-0.8); Monocytes % (Auto) 7.4 % (0.0-7.3); Platelet Count 302 K/mm3 (140-440); Red Blood Count 4.42 M/mm3 (3.65-5.03); Red Cell Distribution Width 13.5 % (13.2-15.2)
[2019-03-08 13:27] LABS: INR 0.96 (0.87-1.13); Partial Thromboplastin Time 29.7 Sec. (24.2-36.6)
[2019-03-08] MEDS ORDERED: KETOROLAC 30 MG/1 ML INJ IV ONE (13:33)
--- NOTE | 2019-03-08 13:38 | Emergency Department Report ---
ED Chest Pain HPI - General Chief Complaint: Chest Pain Stated Complaint: CHEST PAIN Time Seen by Provider: 03/08/19 12:54 Source: patient Mode of arrival: Ambulatory Limitations: No Limitations - History of Present Illness Initial Comments: 54-year-old female with history of COPD, hypertension, diabetes presents to ED with complaint of right-sided chest and back pain 2 weeks. Patient states pain became worse today. She describes pain as sharp in nature, worse with deep breaths and palpation. She reports dry cough. Denies fever, nausea or vomit ing. Patient also reports urinary frequency. MD Complaint: chest pain -: week(s) (2) Onset: during rest Pain Location: right chest Pain Radiation: back Severity: severe Severity scale (0 -10): 9 Quality: sharp Consistency: intermittent Improves With: nothing Worsens With: inspiration, palpation re: denies: nausea, vomting Other Symptoms: cough. denies: fever, leg swelling - Related Data Home Medications Medication Instructions Recorded Confirmed Last Taken Gabapentin [Neurontin] 300 mg PO TID 08/05/13 10/25/18 09/26/14 FLUoxetine [PROzac] 20 mg PO QDAY 01/04/14 10/25/18 09/26/14 Levothyroxine [Synthroid] 125 mcg PO QAM 01/04/14 10/25/18 09/26/14 Phenytoin [Dilantin] 100 mg PO HS 01/04/14 10/25/18 09/26/14 Rosuvastatin (Nf) [Crestor] 20 mg PO HS 01/04/14 10/25/18 09/25/14 Previous Rx's Medication Instructions Recorded Last Taken Type Butalb/Acetamin/Caff 50-325-40 2 tab PO Q4H PRN #30 tablet 09/29/14 Unknown Rx [Fioricet 50-325-40] Symbicort 160-4.5 1 puff INHALATION DAILY #1 09/29/14 Unknown Rx amLODIPine [Norvasc] 5 mg PO DAILY #30 tablet 09/29/14 Unknown Rx hydroCHLOROthiazide [HCTZ] 25 mg PO DAILY #30 tablet 09/29/14 Unknown Rx Ciprofloxacin HCl [Ciprofloxacin 250 mg PO BID 3 Days #6 tablet 09/26/18 Unknown Rx TAB] Phenazopyridine [Pyridium] 100 mg PO TID 3 Days #9 tab 09/26/18 Unknown Rx Aspirin [Aspirin BABY CHEW TAB] 81 mg PO DAILY #30 tab.chew 10/25/18 Unknown Rx Pantoprazole [Protonix] 40 mg PO QDAY #30 tablet 10/25/18 Unknown Rx Fluconazole [Diflucan TAB] 200 mg PO DAILY 5 Days #5 tablet 10/27/18 Unknown Rx Insulin NPH, Human [NovoLIN N] 8 unit SUB-Q BIDDIAB 30 Days #10 ml 10/27/18 Unknown Rx levoFLOXacin [Levaquin TAB] 500 mg PO Q24HR 3 Days #3 tablet 10/27/18 Unknown Rx metFORMIN [Glucophage] 1,000 mg PO BID #60 10/27/18 09/26/14 Rx Naproxen [Naprosyn] 500 mg PO BID #20 tablet 03/08/19 Unknown Rx methOCARBAMOL [Robaxin TAB] 500 mg PO Q8HR PRN #20 tablet 03/08/19 Unknown Rx Allergies Allergy/AdvReac Type Severity Reaction Status Date / Time Penicillins AdvReac Unknown Verified 03/08/19 12:58 Heart Score - HEART Score History: Slightly suspicious EKG: Normal Age: 45-65 Risk factors: 1-2 risk factors Troponin: < normal limit HEART Score: 2 ED Review of Systems ROS: Stated complaint: CHEST PAIN Other details as noted in HPI Comment: All other systems reviewed and negative Constitutional: denies: chills, fever Respiratory: cough, shortness of breath Cardiovascular: chest pain Gastrointestinal: denies: nausea, vomiting ED Past Medical Hx - Past Medical History Hx Hypertension: Yes Hx Diabetes: Yes Hx Arthritis: Yes Hx Seizures: Yes Hx Psychiatric Treatment: Yes (schizophrenia, Mood disorder, bipolar.) Hx Asthma: Yes Additional medical history: PVD - Surgical History Hx Cholecystectomy: Yes Additional Surgical History: ,TUBAL LIGATION - Social History Smoking Status: Never Smoker Substance Use Type: None - Medications Home Medications: Home Medications Medication Instructions Recorded Confirmed Last Taken Type Gabapentin [Neurontin] 300 mg PO TID 08/05/13 10/25/18 09/26/14 History FLUoxetine [PROzac] 20 mg PO QDAY 01/04/14 10/25/18 09/26/14 History Levothyroxine [Synthroid] 125 mcg PO QAM 01/04/14 10/25/18 09/26/14 History Phenytoin [Dilantin] 100 mg PO HS 01/04/14 10/25/18 09/26/14 History Rosuvastatin (Nf) [Crestor] 20 mg PO HS 01/04/14 10/25/18 09/25/14 History Butalb/Acetamin/Caff 50-325-40 2 tab PO Q4H PRN #30 tablet 09/29/14 10/25/18 Unknown Rx [Fioricet 50-325-40] Symbicort 160-4.5 1 puff INHALATION DAILY #1 09/29/14 10/25/18 Unknown Rx amLODIPine [Norvasc] 5 mg PO DAILY #30 tablet 09/29/14 10/25/18 Unknown Rx hydroCHLOROthiazide [HCTZ] 25 mg PO DAILY #30 tablet 09/29/14 10/25/18 Unknown Rx Ciprofloxacin HCl [Ciprofloxacin 250 mg PO BID 3 Days #6 tablet 09/26/18 10/25/18 Unknown Rx TAB] Phenazopyridine [Pyridium] 100 mg PO TID 3 Days #9 tab 09/26/18 10/25/18 Unknown Rx Aspirin [Aspirin BABY CHEW TAB] 81 mg PO DAILY #30 tab.chew 10/25/18 Unknown Rx Pantoprazole [Protonix] 40 mg PO QDAY #30 tablet 10/25/18 Unknown Rx Fluconazole [Diflucan TAB] 200 mg PO DAILY 5 Days #5 tablet 10/27/18 Unknown Rx Insulin NPH, Human [NovoLIN N] 8 unit SUB-Q BIDDIAB 30 Days #10 ml 10/27/18 Unknown Rx levoFLOXacin [Levaquin TAB] 500 mg PO Q24HR 3 Days #3 tablet 10/27/18 Unknown Rx metFORMIN [Glucophage] 1,000 mg PO BID #60 10/27/18 10/25/18 09/26/14 Rx Naproxen [Naprosyn] 500 mg PO BID #20 tablet 03/08/19 Unknown Rx methOCARBAMOL [Robaxin TAB] 500 mg PO Q8HR PRN #20 tablet 03/08/19 Unknown Rx ED Physical Exam - General Limitations: No Limitations General appearance: alert, in no apparent distress - Head Head exam: Present: atraumatic, normocephalic - Eye Eye exam: Present: normal appearance, PERRL, EOMI - ENT ENT exam: Present: mucous membranes moist - Neck Neck exam: Present: normal inspection - Respiratory Respiratory exam: Present: normal lung sounds bilaterally. Absent: respiratory distress - Cardiovascular Cardiovascular Exam: Present: regular rate, normal rhythm - GI/Abdominal GI/Abdominal exam: Present: soft, tenderness (mild epigastric). Absent: distended - Extremities Exam Extremities exam: Present: normal inspection. Absent: pedal edema, calf tenderness - Back Exam Back exam: Present: CVA tenderness (R) - Neurological Exam Neurological exam: Present: alert, oriented X3 - Psychiatric Psychiatric exam: Present: normal affect, normal mood - Skin Skin exam: Present: warm, dry, intact, normal color ED Course Vital Signs 03/08/19 12:55 Temperature 98.3 F Pulse Rate 79 Respiratory 20 Rate Blood Pressure 147/80 [Right] O2 Sat by Pulse 98 Oximetry FRANCISCO JAVIER score - Francisco Javier Score Age > 65: (0) No Aspirin use within the Past 7 Days: (0) No 3 or more CAD Risk Factors: (1) Yes 2 or more Angina events in past 24 hrs: (1) Yes Known CAD with more than 50% Stenosis: (0) No Elevated Cardiac Markers: (0) No ST Deviation Greater than 0.5mm: (0) No FRANCISCO JAVIER Score: 2 ED Medical Decision Making - Lab Data Result diagrams: 03/08/19 13:05 03/08/19 13:05 - EKG Data -: EKG Interpreted by Nm EKG shows normal: sinus rhythm, axis, intervals, QRS complexes, ST-T waves Rate: normal - EKG Data Interpretation: no acute changes - Radiology Data Radiology results: report reviewed, image reviewed - Medical Decision Making 54-year-old female with right-sided chest and back pain 2 weeks. Signs and normal. Patient has tenderness posteriorly in the right CVA region. EKG is normal. Troponin normal, d-dimer normal. Chest x-ray shows no evidence of pneumonia, pleural effusion or any other abnormalities. UA was negative for any sign of infection or hematuria. CT abdomen and pelvis shows no acute abnormalities. Patient reports some improvement in pain with Toradol. States she has a follow-up appointment with her PCP in 2 days. Will discharge at this time. Return precautions given. Prescriptions given. - Differential Diagnosis PE, pleural effusion, pneumonia, pyelonephritis, kidney stone Critical care attestation.: If time is entered above; I have spent that time in minutes in the direct care of this critically ill patient, excluding procedure time. ED Disposition Clinical Impression: Flank pain, Chest pain Disposition: TO HOME OR SELFCARE Is pt being admited?: No Condition: Stable Instructions: Chest Pain (ED), Flank Pain (ED) Prescriptions: Naproxen [Naprosyn] 500 mg PO BID #20 tablet methOCARBAMOL [Robaxin TAB] 500 mg PO Q8HR PRN #20 tablet PRN Reason: Muscle Spasm Referrals: MARLON KENNEDY NP-C [Primary Care Provider] - 3-5 Days PRIMARY CARE, [Referring] - 3-5 Days Time of Disposition: 15:42
[2019-03-08 13:39] LABS: BUN/Creatinine Ratio 19; Blood Urea Nitrogen 15 mg/dL (7-17); Calcium 9.7 mg/dL (8.4-10.2); Hemolysis Index 26
--- NOTE | 2019-03-08 13:50 | XRay Report ---
CHEST 1 VIEW 1:10 PM INDICATION / CLINICAL INFORMATION: Chest Pain in the center of the chest and shortness of breath since the beginning of the week. Bilate ral leg pain and swelling. COMPARISON: 10/25/2018. FINDINGS: SUPPORT DEVICES: None. HEART / MEDIASTINUM: The heart size and pulmonary vasculature are normal. The aorta is normal in kelsy horacio. LUNGS / PLEURA: No significant pulmonary or pleural abnormality. No pneumothorax. ADDITIONAL FINDINGS: No significant additional findings. IMPRESSION: No acute abnormality or significant change. Signer Name: Bud Jose MD Signed: 03/08/2019 1:45 PM Workstation Name: [id number]
[2019-03-08 14:11] LABS: Alanine Aminotransferase 49 units/L (7-56); Albumin 3.9 g/dL (3.9-5)
[2019-03-08 14:14] LABS: Bilirubin,Direct < 0.2 mg/dL (0-0.2)
[2019-03-08 14:39] LABS: Bilirubin,Urine NEG (Negative); Blood,Urine NEG (Negative); Color,Urine Yellow (Yellow); Mucus,Urine FEW /HPF; Protein,Urine <15 mg/dL mg/dL (Negative); Urobilinogen,Urine < 2.0 mg/dL (<2.0); WBC,Urine < 1.0 /HPF (0.0-6.0)
--- NOTE | 2019-03-08 15:33 | Cat Scan Report ---
CT ABDOMEN AND PELVIS WITHOUT CONTRAST INDICATION: Right flank pain for 2 weeks. COMPARISON: CT abdomen and pelvis with contrast from 09/26/2018. TECHNIQUE: Axial, coronal and sagittal CT imaging of the abdomen and pelvis was performed without co ntrast. Lack of intravenous contrast limits evaluation of the vascular and solid organs. All CT sca ns at this location are performed using CT dose reduction for ALARA by means of automated exposure co ntrol. FINDINGS: LOWER CHEST: There is a stable subcentimeter subpleural nodule located anteriorly and laterally along the right lower lobe on image 16 of series 2. Scarring/atelectasis is seen along the lingula. No add itional significant abnormality. LIVER: Cysts are again seen along the right hepatic lobe. No additional significant abnormality. BILIARY: Prior cholecystectomy. No biliary ductal dilatation. PANCREAS: No significant abnormality. SPLEEN: No significant abnormality. ADRENALS: No significant abnormality. KIDNEYS AND URETERS: No significant abnormality. GI TRACT: No significant abnormality of the stomach, small bowel or colon. Unremarkable appendix. PERITONEUM: No free fluid. No free air. No fluid collection. LYMPH NODES: No significant adenopathy. VASCULATURE: No significant abnormality. URINARY BLADDER: No significant abnormality. REPRODUCTIVE ORGANS: No significant abnormality. ADDITIONAL FINDINGS: None. SKELETAL SYSTEM: No acute abnormality. Degenerative changes are seen throughout the spine and along t he SI joints. IMPRESSION: 1. No acute abnormality of the abdomen or pelvis. 2. Additional findings as above. Signer Name: Alexi Scott MD Signed: 03/08/2019 3:29 PM Workstation Name: [id number]
[2019-03-08 15:52] VITALS: BP 129/87
== END 2019-03-08 15:52 | disposition home or self-care (01) ==
LOC: ED 12:20
DX: R07.89 Other chest pain (principal); J44.9 Chronic obstructive pulmonary disease, unspecified; M54.9 Dorsalgia, unspecified; I10 Essential (primary) hypertension; E11.9 Type 2 diabetes mellitus without complications; M19.90 Unspecified osteoarthritis, unspecified site; F20.9 Schizophrenia, unspecified; F31.9 Bipolar disorder, unspecified; R10.13 Epigastric pain; Z98.51 Tubal ligation status; Z79.899 Other long term (current) drug therapy; Z88.0 Allergy status to penicillin; Z79.4 Long term (current) use of insulin
CPT/HCPCS: 36415; 71045; 74176; 80048; 80076; 81001; 83690; 84484; 85025; 85379; 85610; 85730; 93005; 93010; 96374; 99285; J1885